=== PATIENT | male | born 1975 | race Two or more races ===

== ENCOUNTER → 2025-07-29 | Outpatient (CLI) | payer MEDICAID, SELFPAY ==
--- NOTE | 2025-07-29 09:30 | XR_ITS ---
EXAMINATION: Cervical spine, 5 views Technique: Cervical spine AP, AP odontoid, lateral, bilateral obliques, 5 views Exam date and time: July 29, 2025, 0957 hours INDICATION: Left-sided neck pain beginning 3 months ago. FINDINGS: Satisfactory line mid cervical vertebral bodies No cervical fracture Mild disc narrowing posteriorly C5-C6 Mild cervical spondylosis No significant neuroforaminal stenosis The odontoid is intact IMPRESSION: Early degenerative disc disease C5-C6
== END | disposition home or self-care (01) ==
LOC: CDIM 09:21
PROVIDERS: PCP Nurse Practitioner Family; Referring Provider Nurse Practitioner Family; Visit Provider Nurse Practitioner Family
DX: M50.322 Other cervical disc degeneration at C5-C6 level (principal)
CPT/HCPCS: 72050